=== PATIENT | male | born 1930 | race Caucasian/White ===

== ENCOUNTER → 2017-10-14 | Outpatient (CLI) | END | disposition home or self-care (01) ==

== ENCOUNTER → 2018-05-08 | Outpatient (CLI) | END | disposition home or self-care (01) ==

== ENCOUNTER → 2018-06-19 | Outpatient (CLI) | END | disposition home or self-care (01) ==

== ENCOUNTER 2018-07-06 05:35 | Inpatient (IN) | END 2018-07-07 15:10 | disposition home health service (06) | DRG 470 ==

== ENCOUNTER → 2018-07-13 | Outpatient (CLI) | END | disposition home or self-care (01) ==

== ENCOUNTER → 2018-07-21 | Outpatient (CLI) | END | disposition home or self-care (01) ==

== ENCOUNTER → 2018-08-14 | Outpatient (CLI) | payer MEDICARE, BC ==
[~2018-08-14] MED LIST: ACET-141 PO; ASCO500C7 PO; ASPI81TA52 PO; BEN25 PO; CELE100C PO; CHLO118L3 TOP; ERGO2000 PO; FAMO20TA18 PO; FURO20TA3 PO; GLUC1CAP40 PO; LOSA25TA12 PO; MET25 PO; MULTI PO; MUPI15CR9 TOP; POTA10TA37 PO; PRED2.5T3 PO; PYRI60TA PO
--- NOTE | 2018-08-14 12:49 | PN ---
Date/Time of Note Date/Time of Note DATE: 08/14/18 TIME: 12:47 Assessment/Plan VTE Prophylaxis Pharmacological prophylaxis: NA/contraindicated Pharm contraindication: low risk/ambulating Assessment/Plan Assessment/Plan 88-year-old male status post left hip replacement about 6 weeks ago. Patient is advised to progressively increase his activities as tolerated and follow-up in 3 months. Antibiotic prophylaxis for dental treatment was discussed Subjective 24 Hr Interval Summary Free Text/Dictation Uriel is 6 weeks status post left total hip replacement. He is progressing well and is pleased with his outcome. He is able to ambulate without support. Pain is minimal and he has completed his physical therapy Exam/Review of Systems Vital Signs Vitals Vital signs are stable Exam Examination shows a pleasant male. He is ambulating without a limp. Left hip incision is well-healed. Range of motion is somewhat limited. There is no leg length inequality. X-rays of the left hip show a total hip replacement in good position with no evidence of loosening SHANNON HAWK Aug 14, 2018 12:49
--- NOTE | 2018-08-14 19:54 | RADRPT ---
PROCEDURE: XR Left Hip. CLINICAL INDICATION: Pain. TECHNIQUE: AP and frog lateral views of the left hip were performed. COMPARISON: None. FINDINGS: Intact left total bipolar hip prosthesis with anatomic articulation. The proximal femur is intact. The pelvis, sacrum and sacroiliac joints as well as visualized lower lumbar spine are unremarkable. No soft tissue abnormality. IMPRESSION: 1. Intact left total hip prosthesis. Anatomic alignment. RPTAT:AAJJ Iain Hensley Physician Date Time Electronically viewed and signed by Physician Jonnathan on 08/14/2018 19:54 FLIP/
== END | disposition home or self-care (01) ==
LOC: HKI 09:43
PROVIDERS: ATTEND Orthopaedic Surgery
DX: M25.552 Pain in left hip (principal); Z96.642 Presence of left artificial hip joint
CPT/HCPCS: 73502